=== PATIENT | female | born 2000 | race Caucasian/White ===

== ENCOUNTER 2022-01-24 00:59 | Emergency (ER) | payer OTHER ==
[2022-01-24 01:23] VITALS: TEMP 98
--- NOTE | 2022-01-24 01:41 | ED ---
Syncope HPI - General Chief Complaint: Syncope Stated Complaint: [facility] dizziness Time Seen by Provider: 01/24/22 01:36 Source: patient, RN notes reviewed, old records reviewed Mode of arrival: ambulatory - History of Present Illness Initial Comments: This is a 21-year-old female to the emergency department for evaluation patient states a syncopal event that occurred while at work. Patient here regarding a syncopal event. She admits to headache the past few days. She says she felt well he notices a warm environment. Patient has no current headache no current chest pain no shortness of breath no abdominal pain. Denies chance of . MD Complaint: loss of consciousness, collapsed -: minutes(s) Prodromal Symptoms: headache, vision changes, palpitations, heart racing Description of Event: other (none) Witnessed: yes - by bystander Injuries Sustained Associated with Event: None Current Symptoms: back to baseline History: previous syncopal episode Context: standing up Treatments Prior to Arrival: none - Related Data Allergies Allergy/AdvReac Type Severity Reaction Status Date / Time No Known Allergies Allergy Verified 01/24/22 01:22 Review of Systems ROS Statement: Those systems with pertinent positive or pertinent negative responses have been documented in the HPI. ROS Other: All systems not noted in ROS Statement are negative. Past Medical History Additional Past Medical History / Comment(s): fainting spells during childhood. History of Any Multi-Drug Resistant Organisms: None Reported Past Surgical History: No Surgical Hx Reported Past Psychological History: No Psychological Hx Reported Smoking Status: Current every day smoker Past Alcohol Use History: None Reported Past Drug Use History: Marijuana General Exam General appearance: alert, in no apparent distress Head exam: Present: atraumatic, normocephalic, normal inspection Eye exam: Present: normal appearance, PERRL, EOMI. Absent: scleral icterus, conjunctival injection, periorbital swelling ENT exam: Present: normal exam, mucous membranes moist Neck exam: Present: normal inspection. Absent: tenderness, meningismus, lymphadenopathy Respiratory exam: Present: normal lung sounds bilaterally. Absent: respiratory distress, wheezes, rales, rhonchi, stridor Cardiovascular Exam: Present: normal rhythm, tachycardia, normal heart sounds. Absent: systolic murmur, diastolic murmur, rubs, gallop, clicks GI/Abdominal exam: Present: soft, normal bowel sounds. Absent: distended, tenderness, guarding, rebound, rigid Extremities exam: Present: normal inspection, full ROM, normal capillary refill. Absent: tenderness, pedal edema, joint swelling, calf tenderness Back exam: Present: normal inspection Neurological exam: Present: alert, oriented X3, CN II-XII intact Psychiatric exam: Present: normal affect, normal mood Skin exam: Present: warm, dry, intact, normal color. Absent: rash Course Vital Signs 01/24/22 01:19 Temperature 98 F Pulse Rate 107 H Respiratory 18 Rate Blood Pressure 143/88 O2 Sat by Pulse 98 Oximetry - Reevaluation(s) Reevaluation #1: 01/24/22 02:26 Medical record is reviewed Reevaluation #2: 01/24/22 02:26 Patient symptoms are significantly improved here in the emergency department Reevaluation #3: 01/24/22 02:26 No recurrent syncope here in the emergency department EKG Findings - EKG Comments: EKG Findings:: EKG sinus tachycardia 101 WA 150 QRS 94 QTC 393 Medical Decision Making - Medical Decision Making 21 female to the emergency department with syncopal event history of significant or past. Patient states she has history of event while at work is presenting today for evaluation regarding a syncopal event no headache chest pain shortness with abdominal pain. She has had a headache the past few days CT brain is negative here in the ER EKG is normal patient can be discharged home - Lab Data Lab Results 01/24/22 01/24/22 01/24/22 Range/Units 01:48 01:48 01:48 Urine Color Yellow Urine Appearance Clear (Clear) Urine pH 5.5 (5.0-8.0) Ur Specific [place] 1.022 (1.001-1.035) Urine Protein Negative (Negative) Urine Glucose (UA) Negative (Negative) Urine Ketones Negative (Negative) Urine Blood Negative (Negative) Urine Nitrite Negative (Negative) Urine Bilirubin Negative (Negative) Urine Urobilinogen 2.0 (<2.0) mg/dL Ur Leukocyte Esterase Negative (Negative) Urine HCG, Qual Not Detected (Not Detectd) Urine Opiates Screen Not Detected (NotDetected) Ur Oxycodone Screen Not Detected (NotDetected) Urine Methadone Screen Not Detected (NotDetected) Ur Propoxyphene Screen Not Detected (NotDetected) Ur Barbiturates Screen Not Detected (NotDetected) U Tricyclic Antidepress Not Detected (NotDetected) Ur Phencyclidine Scrn Not Detected (NotDetected) Ur Amphetamines Screen Not Detected (NotDetected) U Methamphetamines Scrn Not Detected (NotDetected) U Benzodiazepines Scrn Not Detected (NotDetected) Urine Cocaine Screen Detected H (NotDetected) U Marijuana (THC) Screen Detected H (NotDetected) - Radiology Data Radiology results: report reviewed (CT brain is negative for acute disease), image reviewed Disposition Clinical Impression: Vasovagal syncope Disposition: HOME SELF-CARE Condition: Good Instructions (If sedation given, give patient instructions): Syncope (ED) Is patient prescribed a controlled substance at d/c from ED?: No Referrals: None,Stated [Primary Care Provider] - 1-2 days
[2022-01-24 02:01] LABS: Appearance,Urine Clear (Clear); Bilirubin,Urine Negative (Negative); Blood,Urine Negative (Negative); Color,Urine Yellow; Glucose,Urine (UA) Negative (Negative); Ketones,Urine Negative (Negative); Leukocyte Esterase,Urine Negative (Negative); Nitrite,Urine Negative (Negative); PH, Urine 5.5 (5.0-8.0); Protein,Urine Negative (Negative); Specific Gravity,Urine 1.022 (1.001-1.035)
[2022-01-24 02:15] LABS: Amphetamine Screen,Urine Not Detected (NotDetected); Barbiturate Screen,Urine Not Detected (NotDetected); Benzodiazepines Screen,Urine Not Detected (NotDetected); Cocaine Screen,Urine Detected (NotDetected); Methadone Screen, Urine Not Detected (NotDetected); Opiate Screen,Urine Not Detected (NotDetected); Oxycodone Screen, Urine Not Detected (NotDetected); Phencyclidine Screen,Urine Not Detected (NotDetected); Tricyclic Antidepressant,Urine Not Detected (NotDetected); Urn Cannabinoid Scrn Detected (NotDetected)
--- NOTE | 2022-01-24 02:40 | CT ---
EXAMINATION TYPE: CT brain wo con DATE OF EXAM: 01/24/2022 COMPARISON: None HISTORY: DEAN CT DLP: 1088.4 mGycm Automated exposure control for dose reduction was used. Ventricles of normal size. There is no mass effect or midline shift. There is no sign of intracranial hemorrhage. The calvarium is intact. There is no evidence of cerebral edema. IMPRESSION: Negative unenhanced head CT scan
[2022-01-24 03:20] VITALS: BP 138/78; PULSE 90; RESP 17
== END 2022-01-24 03:26 | disposition home or self-care (01) ==
LOC: EC 00:59
DX: R55 Syncope and collapse (principal); F17.200 Nicotine dependence, unspecified, uncomplicated
CPT/HCPCS: 70450; 80306; 81003; 81025; 93005; 99285

== ENCOUNTER 2023-02-20 17:55 | Emergency (ER) | payer OTHER ==
--- NOTE | 2023-02-20 18:08 | ED ---
General Adult HPI - General Source: patient, RN notes reviewed Mode of arrival: EMS Limitations: no limitations <Ren Hernandez - Last Filed: 02/20/23 18:05> <Travis Hoyos - Last Filed: 02/21/23 00:13> - General Stated complaint: EPS eval Time Seen by Provider: 02/20/23 17:56 - History of Present Illness Initial comments: Patient is a pleasant 22-year-old female presenting to the emergency department for mental health evaluation. Patient does admit to feeling depressed. Patient admits to having suicidal thoughts however states that is frequent for her. Patient did not have specific plan. Patient denies homicidal thoughts however states if she was ataxic to defend herself. Patient has not been sleeping well. Patient has not been eating and drinking well. He should does admit to feeling depressed. No new physical complaints. Last alcohol was yesterday. (Ren Hernandez) - Related Data Allergies Allergy/AdvReac Type Severity Reaction Status Date / Time No Known Allergies Allergy Verified 02/20/23 19:33 Review of Systems ROS Other: All systems not noted in ROS Statement are negative. Constitutional: Denies: fever Eyes: Denies: eye pain ENT: Denies: ear pain Respiratory: Denies: cough Cardiovascular: Denies: chest pain Endocrine: Denies: fatigue Gastrointestinal: Denies: abdominal pain Genitourinary: Denies: dysuria Skin: Denies: rash Psychiatric: Reports: as per HPI, depression, suicidal thoughts <Ren Hernandez - Last Filed: 02/20/23 18:05> ROS Other: All systems not noted in ROS Statement are negative. <Travis Hoyos - Last Filed: 02/21/23 00:13> ROS Statement: Those systems with pertinent positive or pertinent negative responses have been documented in the HPI. Past Medical History Additional Past Medical History / Comment(s): fainting spells during childhood. History of Any Multi-Drug Resistant Organisms: None Reported Past Surgical History: No Surgical Hx Reported Past Psychological History: No Psychological Hx Reported Smoking Status: Current every day smoker Past Alcohol Use History: None Reported Past Drug Use History: Marijuana <Ren Hernandez - Last Filed: 02/20/23 18:05> General Exam Limitations: no limitations General appearance: alert, in no apparent distress Head exam: Present: normocephalic Eye exam: Present: normal appearance Neck exam: Present: normal inspection Cardiovascular Exam: Present: regular rate, normal rhythm GI/Abdominal exam: Present: soft. Absent: tenderness Extremities exam: Present: normal inspection Neurological exam: Present: alert Psychiatric exam: Present: depressed Skin exam: Absent: abrasion <Ren Hernandez - Last Filed: 02/20/23 18:05> Course Vital Signs 02/20/23 18:05 Temperature 99.6 F Pulse Rate 72 Respiratory 18 Rate Blood Pressure 118/83 O2 Sat by Pulse 96 Oximetry Medical Decision Making <Travis Hoyos - Last Filed: 02/21/23 00:13> - Medical Decision Making I assumed care of the patient from Dr. Hernandez. The patient was signed out to me pending EPS evaluation for final disposition and management Was pt. sent in by a medical professional or institution (, PA, BONDING MACHINE OPERATOR, urgent care, hospital, or retirement...) When possible be specific @ -No Did you speak to anyone other than the patient for history (EMS, parent, family, police, friend...)? What history was obtained from this source @ -No Did you review nursing and triage notes (agree or disagree)? Why? @ -I reviewed and agree with nursing and triage notes Were old charts reviewed (outside hosp., previous admission, EMS record, old EKG, old radiological studies, urgent care reports/EKG's, retirement records)? Report findings @ -No old charts were reviewed Differential Diagnosis (chest pain, altered mental status, abdominal pain women, abdominal pain men, vaginal bleeding, weakness, fever, dyspnea, syncope, headache, dizziness, GI bleed, back pain, seizure, CVA, palpatations, mental health)? @ -Homicide ideation, suicidal ideation, acute psychosis EKG interpreted by me (3pts min.). @ -As above X-rays interpreted by me (1pt min.). @ -None done CT interpreted by me (1pt min.). @ -None done U/S interpreted by me (1pt. min.). @ -None done What testing was considered but not performed or refused? (CT, X-rays, U/S, labs)? Why? @ -None What meds were considered but not given or refused? Why? @ -None Did you discuss the management of the patient with other professionals (professionals i.e. , PA, BONDING MACHINE OPERATOR, lab, RT, psych nurse, social worker delinquency prevention, utilities ground worker, teacher, corporate officer, caser up)? Give summary @ -Yes, EPS nurse Was smoking cessation discussed for >3mins.? @ -No Was critical care preformed (if so, how long)? @ -No Were there social determinants of health that impacted care today? How? (Homelessness, low income, unemployed, alcoholism, drug addiction, transportation, low edu. Level, literacy, decrease access to med. care, fci, rehab)? @ -No Was there de-escalation of care discussed even if they declined (Discuss DNR or withdrawal of care, Hospice)? DNR status @ -No What co-morbidities impacted this encounter? (DM, HTN, Smoking, COPD, CAD, Cancer, CVA, ARF, Chemo, Hep., AIDS, mental health diagnosis, sleep apnea, morbid obesity)? @ -None Was patient admitted / discharged? Hospital course, mention meds given and route, prescriptions, significant lab abnormalities, going to OR and other pertinent info. @ -The patient was initially seen by Dr. Hernandez. Please see his note for HPI. The patient remained stable and was signed out to me pending EPS evaluation. EPS to evaluate the patient the bedside and determined that the patient was safe to be discharged home. The patient had a safety plan created and did agree with this. When I went to evaluate the patient, she continued to deny any suicidal or homicidal ideation and stated that all she wanted to do was be discharged home. The patient was tearful speaking with this and stated that she was in full agreement with the safety plan. The patient was discharged home in stable condition. Undiagnosed new problem with uncertain prognosis? @ -No Drug Therapy requiring intensive monitoring for toxicity (Heparin, Nitro, Insulin, Cardizem)? @ -No Were any procedures done? @ -No Diagnosis/symptom? @ -Aggression, NOS Acute, or Chronic, or Acute on Chronic? @ -Acute on chronic Uncomplicated (without systemic symptoms) or Complicated (systemic symptoms)? @ -Uncomplicated Side effects of treatment? @ -No Exacerbation, Progression, or Severe Exacerbation? @ -No Poses a threat to life or bodily function? How? (Chest pain, [place], [place], pneumonia, PE, COPD, DKA, ARF, appy, cholecystitis, CVA, Diverticulitis, Homicidal, Suicidal, threat to staff... and all critical care pts) @ -No (Travis Hoyos) - Lab Data Lab Results 02/20/23 Range/Units 18:16 Urine Opiates Screen Not Detected (NotDetected) Ur Oxycodone Screen Not Detected (NotDetected) Urine Methadone Screen Not Detected (NotDetected) Ur Propoxyphene Screen Not Detected (NotDetected) Ur Barbiturates Screen Not Detected (NotDetected) U Tricyclic Antidepress Not Detected (NotDetected) Ur Phencyclidine Scrn Not Detected (NotDetected) Ur Amphetamines Screen Not Detected (NotDetected) U Methamphetamines Scrn Not Detected (NotDetected) U Benzodiazepines Scrn Not Detected (NotDetected) Urine Cocaine Screen Not Detected (NotDetected) U Marijuana (THC) Screen Detected H (NotDetected) Disposition <Ren Hernandez - Last Filed: 02/20/23 18:05> Is patient prescribed a controlled substance at d/c from ED?: No Time of Disposition: 23:50 <Travis Hoyos - Last Filed: 02/21/23 00:13> Clinical Impression: Aggression Disposition: HOME SELF-CARE Condition: Stable Additional Instructions: Please follow safety plan as established by EPS nurse. Referrals: None,Stated [Primary Care Provider] - 1-2 days
[2023-02-20 18:32] LABS: Amphetamine Screen,Urine Not Detected (NotDetected); Benzodiazepines Screen,Urine Not Detected (NotDetected); Cocaine Screen,Urine Not Detected (NotDetected); Methadone Screen, Urine Not Detected (NotDetected); Opiate Screen,Urine Not Detected (NotDetected); Phencyclidine Screen,Urine Not Detected (NotDetected); Tricyclic Antidepressant,Urine Not Detected (NotDetected); Urn Cannabinoid Scrn Detected (NotDetected)
[2023-02-20 18:33] LABS: Barbiturate Screen,Urine Not Detected (NotDetected); Oxycodone Screen, Urine Not Detected (NotDetected)
[2023-02-20 19:32] VITALS: BP 118/83; PULSE 72; RESP 18; TEMP 99.6
[2023-02-20] MEDS ORDERED: ALBUTEROL HFA INHALER INHALATION PRN (21:29)
[2023-02-20] MEDS ORDERED: lamoTRIgine 100 MG TAB PO SCH (21:30)
[2023-02-20] MEDS ORDERED: traZODone HCL 100 MG TAB PO SCH (21:30)
[2023-02-20] MEDS ORDERED: LORazepam 2 MG/ML INJ IM STA (23:16)
== END 2023-02-21 00:19 | disposition home or self-care (01) ==
LOC: EC 17:55
DX: R45.6 Violent behavior (principal); F12.90 Cannabis use, unspecified, uncomplicated; F17.200 Nicotine dependence, unspecified, uncomplicated
CPT/HCPCS: 82075; 80306; 99285; 96372; J2060